=== PATIENT | male | born 1960 | race Caucasian/White ===

== ENCOUNTER 2017-12-30 10:32 | Inpatient (IN) ==
[2017-12-30 11:04] VITALS: BMI 34.2
[2017-12-30] MEDS ORDERED: TORADOL IVP PRN (12:26)
[2017-12-30] MEDS ORDERED: TORADOL ONE (12:43)
[2017-12-30] MEDS ORDERED: XANAX PO STA (13:56)
[2017-12-30] MEDS: DILAUDID 2 MG/ML SDV IVP PRN ×2 (14:01→22:38)
[2017-12-30] MEDS ORDERED: DILAUDID 2 MG/ML SDV IVP STA (16:16)
[2017-12-30] MEDS ORDERED: DECADRON 4 MG/ML SDV IVP STA (16:17)
[2017-12-30] MEDS: NEURONTIN PO SCH (21:00)
[2017-12-30] MEDS: LAMICTAL PO SCH (21:00)
[2017-12-30] MEDS ORDERED: NON-FORMULARY MEDICATION (Meloxicam [Meloxicam] 15 MG) PO SCH (21:00)
[2017-12-30] MEDS ORDERED: LAMOTRIGINE 150 MG PO SCH (21:00)
[2017-12-30] MEDS: MOBIC PO SCH (21:00)
[2017-12-30] MEDS: ZANAFLEX PO SCH (21:01)
[2017-12-30] MEDS: TOPAMAX PO SCH (21:01)
[2017-12-30] MEDS: TORADOL IVP PRN (21:01)
[2017-12-31] MEDS: DILAUDID 2 MG/ML SDV IVP PRN ×3 (04:40→17:52)
[2017-12-31] MEDS: TORADOL IVP PRN ×3 (05:43→21:49)
[2017-12-31] MEDS ORDERED: MEDROL DOSEPAK PO SCH (08:30)
[2017-12-31] MEDS: TOPAMAX PO SCH ×2 (08:34→20:18)
[2017-12-31] MEDS: LAMICTAL PO SCH ×2 (08:35→20:19)
[2017-12-31] MEDS: NEURONTIN PO SCH ×2 (08:35→20:19)
[2017-12-31] MEDS: MEDROL DOSEPAK PO SCH ×4 (08:35→20:19)
[2017-12-31] MEDS ORDERED: DILAUDID 2 MG/ML SDV IVP STA (10:38)
--- NOTE | 2017-12-31 14:04 | US ---
EXAM: Left lower extremity venous Doppler duplex HISTORY: Concern for DVT with lower extremity pain and tenderness for 3 days. COMPARISON: None TECHNIQUE: Sonographic and Doppler evaluation of the left lower extremity vessels from the common fe moral through the anterior tibial veins were obtained. Color Doppler wave spectral evaluation was pro vided. Augmentation and compression techniques were also performed. FINDINGS: Anterior tibial vein was not visualized. There is spontaneous Doppler flow seen in the le ft lower extremity veins from the common femoral through the anterior tibial veins. Color Doppler wa ve spectral analysis were unremarkable. There is normal compression and augmentation throughout the lower extremity veins. There is no visualized reflux. Sonographic appearance of the soft tissues ar e unremarkable. IMPRESSION: No left lower extremity thrombus
[2017-12-31] MEDS ORDERED: DILAUDID 2 MG/ML SDV ONE (14:18)
--- NOTE | 2017-12-31 15:11 | MRI ---
EXAM: Lumbar spine MRI without contrast. HISTORY: Intractable lower back pain. COMPARISON: Lumbar spine MRI 02/20/2016. TECHNIQUE: Multiplanar, multisequence MR images were acquired lumbar spine without contrast. FINDINGS: The conus medullaris ends at L1 and has normal morphology and signal intensity. Canal lauren meter is developmentally narrow. Five non-rib bearing lumbar vertebra are present. There is minor m id lumbar dextroscoliosis and mild loss of the usual smooth lumbar lordosis. There is stable 1.5 mm retrolisthesis of L2 on L3, 2.7 mm retrolisthesis of L3 on L4 and 2 mm retrolisthesis of L4 on L5. T he lumbar vertebra are normal in height and intrinsic bone marrow signal. Ventral and lateral osteop hytes are present in the lumbar spine and there is disc desiccation. There is mild to moderate disc space narrowing with mild endplate irregularity at L2-3 and L3-4. At L4-5, there is a diffuse disc o steophyte complex with mild endplate irregularity and moderate disc space narrowing that is greatest left laterally with minor modic type 2 endplate changes. At L5-S1, there is a diffuse disc osteophyt e complex with bilateral lateral and far lateral endplate osteophytes with endplate irregularity and modic type 2 endplate changes. These findings are stable compared to the previous MRI. The partially visualized liver, spleen and left kidney are unremarkable. A lower pole simple right r enal cyst is present. There are no paravertebral masses. L1-2: There is a mild disc bulge that is asymmetric to the right which minimally narrows the inferior right neural foramen. There is no central canal stenosis. L2-3: There is retrolisthesis of L2 on L3 and there is a diffuse disc bulge that is asymmetric to th e right with a small to moderate right paracentral disc extrusion with inferior migration unchanged f rom previously. Mild bilateral facet and ligamentum flavum hypertrophy is present. There is mild to moderate central canal stenosis, right lateral recess stenosis with encroachment on the right L3 ner ve roots and moderate right and mild to moderate left neural foraminal stenosis. AP diameter of the thecal sac is 7 mm. L3-4: There is a mild diffuse disc bulge and large broad-based central disc and left posterolateral disc extrusion. The central component of the disc herniation extends from the right lateral recess t o the left lateral recess and incorporates the previously seen small right paracentral component. Th ere is a new left posterolateral disc extruded component with inferior migration in the left lateral recess. The left posterolateral herniated disc fragment compresses the descending left L4 nerve root s. Mild bilateral facet and ligamentum flavum hypertrophy is present and there is moderate central c anal stenosis without significant change and mild to moderate left and moderate right foraminal steno sis. L4-5: There are postoperative left hemilaminectomy and partial medial facetectomy changes. There is a diffuse disc osteophyte complex that is asymmetric to the left and there is a more focal left para central component with a new small area of soft tissue signal along the central/right paracentral mar gin of the disc osteophyte complex that extends inferiorly. This may represent a new small central/r ight paracentral disc herniation. Contrast was not administered. Residual right greater than left f acet and right ligamentum flavum hypertrophy is present. There is mild to moderate right and moderat e left neural foraminal stenosis. L5-S1: There is moderate diffuse spondylotic disc bulge with endplate osteophytes that encroaches on both L5 nerves exiting the neural foramina and there is a possible small central disc protrusion. B ilateral facet and ligamentum flavum hypertrophy is present and there is right lateral recess stenosi s with encroachment on the right S1 nerve roots and moderate bilateral foraminal stenosis. IMPRESSION: 1. Large broad-based central and left posterolateral disc extrusion L3-4 which compresses the descen ding left L4 nerve. The central component of the disc herniation has increased compared to previousl y and there is a new left posterolateral component which encroaches on the left L4 nerve. 2. No change small to moderate right paracentral disc extrusion L2-3 with encroachment on the right L3 nerve roots. 3. Diffuse disc osteophyte complex L4-5 with a more focal left paracentral component and a new small area of soft tissue signal along the central/right paracentral margin that may represent a new herni ated disc fragment. 4. Moderate multilevel lumbar degenerative spondylosis with mild to moderate L2-3 and moderate L3-4 central canal stenosis. 5. Multilevel foraminal stenosis. 6. Post left L4-5 microdiskectomy.
--- NOTE | 2017-12-31 16:24 | CT ---
EXAM: CT of the abdomen pelvis without contrast History: Abdominal pain and left hip pain. Comparison: CT abdomen pelvis 05/04/2013 Technique: Multiplanar CT images through the abdomen pelvis were obtained without the administration of IV contrast Findings: Lung bases are clear. No acute osseous abnormalities. Moderate to severe degenerative ch anges of the lumbar spine. Bilateral hip joints are relatively preserved. Stomach is moderately distended with fluid. No discrete gallstones identified by CT. No focal liver or splenic lesions. No renal stones and no hydronephrosis. Mild nonspecific bilateral perinephric stranding. No peripancreatic inflammation. The appendix is normal. No free air and no ascites. No bladder wall thickening. Prostate is not enlarged. No perirectal inflammation. Scattered colonic stool. No lymphadenopathy. Impression: 1. Stomach is moderately distended with fluid could be due to ileus, gastritis, gastroparesis or vesna andre outlet obstruction. There is no bowel obstruction. 2. Nonspecific mild bilateral perinephric stranding. Correlate with urinalysis and renal function t ests. 3. Moderate to severe degenerative changes of the lumbar spine.
[2017-12-31] MEDS: ZANAFLEX PO SCH (20:18)
[2017-12-31] MEDS: MOBIC PO SCH (20:19)
[2018-01-01] MEDS: DILAUDID 2 MG/ML SDV IVP PRN ×3 (01:04→14:10)
[2018-01-01] MEDS: MEDROL DOSEPAK PO SCH ×4 (05:59→20:45)
[2018-01-01] MEDS: TORADOL IVP PRN ×2 (05:59→14:10)
[2018-01-01] MEDS: TOPAMAX PO SCH ×2 (08:19→20:47)
[2018-01-01] MEDS: NEURONTIN PO SCH ×2 (08:20→20:47)
[2018-01-01] MEDS: LAMICTAL PO SCH ×2 (08:20→20:47)
[2018-01-01] MEDS: LOVENOX SUBCUT SCH (08:26)
[2018-01-01] MEDS ORDERED: ATIVAN PO STA (08:30)
--- NOTE | 2018-01-01 10:28 | PN ---
DATE OF SERVICE: 12/31/17 SUBJECTIVE: The patient was admitted from the [facility] office for intractable lower back pain. The patient was already treated in the [facility] for the same. Pain is not getting better. Came to the office so being admitted for the observation. The patient had an MRI. MRI results came finally now; large broad-based central and left posterolateral disc extrusion L3-L4 compression of the descending of the left L4 now. The central compression of the disc herniation has increased compared to the previous and there is new left posterolateral component which encroaches on the left L4 nerve. Venous Doppler is negative in the left lower extremity. CT abdomen and pelvis showed the stomach is moderately distended with fluid could be due to ileus, gastritis. There is no bowel obstruction. Nonspecific milkd bilateral perinephric stranding. DJD spine was seen. The patient's pain is being helped with Dilaudid and Toradol. REVIEW OF SYSTEMS: CONSTITUTIONAL: No fever, no chills. HEENT: Normal. ENDOCRINE: No weight gain, no weight loss. CVS: No angina symptoms. No CHF symptoms. No palpitations. No atypical chest pain for CAD. No shortness of breath. No PND, no orthopnea. RESPIRATORY: No cough, no hemoptysis. GI: No nausea, no vomiting. No abdominal pain. : No hematuria. No polyuria. MUSCULOSKELETAL: No joint swelling. PSYCHIATRIC: Not anxious. No depression. No suicidal thoughts. No homicidal thoughts. SKIN: Intact. No rash. PHYSICAL EXAMINATION: V/S: Blood pressure 120/71, respiratory rate 20, heart rate 68, temperature 97.7. HEENT: Normocephalic, atraumatic. Mucosa dry. NECK: Supple. No JVD, no carotid bruit. No lymphadenopathy. LUNGS: Clear to auscultation. No rales or rhonchi. HEART: S1, S2 normal. No S3. No murmur, gallop or regurgitation. ABDOMEN: Soft, nontender. Bowel sounds active. No rigidity. No rebound or guarding. No CVA tenderness. EXTREMITIES: No cyanosis, clubbing or pedal edema. Left lower extremity tenderness is present. Straight leg raising test is positive at 30. MUSCULOSKELETAL: No joint swelling. NEUROLOGIC: Awake, alert. No focal deficit. LYMPHATIC: No lymph nodes palpable. SKIN: Intact. LABS: WBC 8.34, hgb 14.1, hct 40.3, plt count 154. Sodium 134, potassium 4.1, chloride 106, bicarb 21, BUN 24, creatinine 1.38 and glucose 164. ASSESSMENT: 1. Intractable left lower back pain 2. Acute on chronic renal failure 3. Intractable lower back pain 4. History of back surgery 5. Sleep apnea 6. Vasectomy PLAN: 1. Dilaudid 2. Toradol 3. Solu-Medrol 4. Decadron TIME SPENT: More than 35 minutes MTDD
[2018-01-01] MEDS ORDERED: DEMEROL 25 MG/ML VIAL IVP PRN (11:22)
[2018-01-01] MEDS: DEMEROL 50 MG/ML SYRINGE IVP PRN ×2 (16:44→20:46)
[2018-01-01] MEDS ORDERED: TORADOL IVP STA (18:31)
[2018-01-01] MEDS: MOBIC PO SCH (20:47)
[2018-01-01] MEDS: ZANAFLEX PO SCH (20:47)
[2018-01-02] MEDS: DILAUDID 2 MG/ML SDV IVP PRN ×2 (00:01→08:34)
[2018-01-02] MEDS: DEMEROL 50 MG/ML SYRINGE IVP PRN ×2 (01:56→06:31)
[2018-01-02] MEDS: TORADOL IVP PRN (04:05)
[2018-01-02 05:37] VITALS: BP 106/67; TEMP 98.6
[2018-01-02] MEDS: MEDROL DOSEPAK PO SCH (06:26)
[2018-01-02] MEDS ORDERED: DEMEROL 50 MG/ML VIAL IVP PRN (07:39)
[2018-01-02] MEDS: LAMICTAL PO SCH (08:18)
[2018-01-02] MEDS: NEURONTIN PO SCH (08:18)
[2018-01-02] MEDS: TOPAMAX PO SCH (08:19)
[2018-01-02] MEDS: LOVENOX SUBCUT SCH (08:40)
--- NOTE | 2018-01-02 09:33 | PN ---
DATE OF SERVICE: 01/01/18 SUBJECTIVE: The patient was admitted yesterday from the office with intractable lower back pain and sciatic pain. The patient's MRI showed pinched nerve and pressure on the left L4 nerve. The patient was getting Dilaudid and still rates pain 7 to 10 out of 10. The patient's significant other is in the room. Evaluation for venous Doppler is negative. CT abdomen and pelvis shows distended stomach with questionable ileus picture, otherwise no fever or chills. No nausea or vomiting. REVIEW OF SYSTEMS: CONSTITUTIONAL: No fever, no chills. HEENT: Normal. ENDOCRINE: No weight gain, no weight loss. CVS: No angina symptoms. No CHF symptoms. No palpitations. No atypical chest pain for CAD. No shortness of breath. No PND, no orthopnea. RESPIRATORY: No cough, no hemoptysis. GI: No nausea, no vomiting. No abdominal pain. : No hematuria. No polyuria. MUSCULOSKELETAL: Lower back pain. PSYCHIATRIC: Not anxious. No depression. No suicidal thoughts. No homicidal thoughts. SKIN: Intact. No rash. PHYSICAL EXAMINATION: GENERAL: Sick-looking man in pain. V/S: BP 126/83, respiratory rate 16, heart rate 70, temperature 98.6, saturation 97. HEENT: Normocephalic, atraumatic. Mucosa dry. Pallor positive. No icterus. NECK: Supple. No JVD, no carotid bruit. No lymphadenopathy. LUNGS: Clear to auscultation. No rales or rhonchi. HEART: S1, S2 normal. No S3. No murmur, gallop or regurgitation. ABDOMEN: Soft, nontender. Bowel sounds active. No rigidity. No rebound or guarding. No CVA tenderness. EXTREMITIES: Left lower leg tenderness. Straight leg raise is positive at 20 degrees. No cyanosis, clubbing or pedal edema. MUSCULOSKELETAL: No joint swelling. NEUROLOGIC: Awake, alert. No focal deficit. LYMPHATIC: No lymph nodes palpable. SKIN: Intact. LABS: White count 5.93, hemoglobin 14.3, hematocrit 41.2, platelet count 156. Sodium 136, potassium 4.6, chloride 106, bicarb 34, BUN 23, creatinine 1.36. ASSESSMENT: 1. INTRACTABLE LEFT-SIDED SCIATICA WITH MRI SHOWING PINCHED NERVE ON L4 2. ILEUS PER CT SCAN 3. 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 SLEEP APNEA PLAN: 1. Continue Dilaudid 2. Toradol 3. Solu-Medrol 4. Will talk to Dr. Oneill for possible transfer of patient to higher care in view of intractable pain. TIME SPENT: More than 35 minutes MTDD
--- NOTE | 2018-01-02 17:46 | PCM.HOSP ---
- Initial Hospital Care [id number] 70 Minutes Bedside ([id number]): 12/30 - Subsequent Care [id number] 35 Minutes per Day ([id number]): 12/31. 01/01 - Hospital Discharge [id number] More than 30 Minutes ([id number]): 01/02
--- NOTE | 2018-01-07 10:25 | DS ---
DATE OF SERVICE: 01/02/18 FINAL DIAGNOSIS: 1. Intractable lower back pain, sciatica, negative for DVT 2. Obstructive sleep apnea 3. Bipolar disorder 4. History of MRSA bilateral knees 5. Left microdiscectomy 6. Sessile polypectomy 7. Colonoscopy DISCHARGE INSTRUCTIONS: Discharge the patient home. Followup with Dr. Oneill today at 9:30am. CT being provided. MEDICATIONS AT DISCHARGE: Lamotrigine Neurontin Hydrocodone Viagra Bactrim DS Topamax Mobic Tizanidine Tylenol NEW PRESCRIPTIONS: Medrol Dose Pack DIET INSTRUCTIONS: Healthy Heart ACTIVITY: As much as tolerated DISEASE SPECIFIC EDUCATION: Intractable sciatica Pain medication Constipation been discussed and verbalized understanding. HOSPITAL COURSE: Jimbo Wray 57 year old gentleman who came to the office with severe left sided sciatica. The patient initially given a Toradol shot which did help him but the patient's pain got worse over the night and went to the [facility] where he given Dilaudid and was able to rest for the night and the patient came back in the morning again with severe and worsening pain. The patient was admitted to the hospital and MRI of the lumbar done which did show worsening of the pinching nerve at L4 and L5. The patient was in intractable pain and not able to walk, Dilaudid was given, Toradol was given and Demerol was given and Medrol Dose Pack was started. Gradually the patient did seem to ease a little bit. D-Dimer was negative and Venous Doppler is negative. CT of abdomen and pelvis showed some ileus picture but the patient was eating good and having good bowel movements. In a lot of severe pain we did make an appointment with Dr. Oneill. He was courteous enough to see the patient today morning so the patient being discharged home so that he can go and see Dr. Oneill. TIME SPENT: MORE THAN 65 MINUTE MTDD
== END 2018-01-02 09:00 | disposition home or self-care (01) | DRG 155 ==
LOC: MEDSURG B 10:32 → OBSVTOIN 10:32
PROVIDERS: ADMIT Emergency Medicine; ATTEND Emergency Medicine
DX: G47.33 Obstructive sleep apnea (adult) (pediatric) (principal); K56.7 Ileus, unspecified; N17.9 Acute kidney failure, unspecified; N18.9 Chronic kidney disease, unspecified; M79.605 Pain in left leg; M47.9 Spondylosis, unspecified; F31.9 Bipolar disorder, unspecified
CPT/HCPCS: 36415; 80053; 81001; 85025; 85379

== ENCOUNTER 2018-08-03 16:12 | Outpatient (CLI) | END 2018-08-03 16:13 | disposition home or self-care (01) | LOC: RHC-LAB 16:12 → FCC-LAB 16:13 | PROVIDERS: ATTEND Nurse Practitioner Family | DX: R51 Headache (principal); R79.89 Other specified abnormal findings of blood chemistry | CPT/HCPCS: 36415; 80053; 85025; 85651 ==